=== PATIENT | male | born 2005 | race Caucasian/White ===

== ENCOUNTER 2023-01-06 08:33 | Outpatient (CLI) | payer OTHER ==
[2023-01-06] MEDS ORDERED: Iopamidol 300 61% 100 ML VIAL FS ONE (08:53)
== END 2023-01-06 08:34 | disposition home or self-care (01) ==
LOC: CSHCT 08:33
PROVIDERS: ATTEND Physician Assistant Medical
DX: D73.4 Cyst of spleen (principal)
CPT/HCPCS: 74170